=== PATIENT | female | born 1985 | race Asian ===

== ENCOUNTER 2016-08-02 05:34 | Emergency (ER) | payer OTHER ==
[~2016-08-02] VITALS: Ht 165.1 cm; Wt 59.0 kg
[2016-08-02] MEDS ORDERED: ONDANSETRON HCL/PF 4 MG/2 ML VIAL ONE (06:16)
[2016-08-02] MEDS ORDERED: MORPHINE SULFATE INJ 2 MG/ML DISP.SYRIN ONE (06:16)
[2016-08-02] MEDS ORDERED: IV SET PRIMARY 1 EA INFUS.SET MC ONE (06:17)
[2016-08-02] MEDS ORDERED: IV NS 0.9% 1,000 ML ONE (06:17)
[2016-08-02 06:25] LABS: BASOPHILS % (AUTO) 0.4 % (0.0-2.0); DIFF TOTAL % 100 %; EOSINOPHILS # (AUTO) 0.2 /CMM (0.0-0.7); HEMATOCRIT 40 % (33-45); HEMOGLOBIN 13.3 g/dL (11.5-14.8); LYMPHOCYTES # (AUTO) 1.7 /CMM (0.8-4.8); LYMPHOCYTES % (AUTO) 31.3 % (20.0-44.0); MEAN CORPUSCULAR HEMOGLOBIN 30 PG (26.0-33.0); MEAN CORPUSCULAR HGB CONC 34 g/dl (31.0-36.0); MEAN CORPUSCULAR VOLUME 90 fL (82-100); MONOCYTES # (AUTO) 0.4 /CMM (0.1-1.30); MONOCYTES % (AUTO) 7.6 % (2.0-12.0); NEUTROPHILS # (AUTO) 3.1 /CMM (1.8-8.9); NEUTROPHILS % (AUTO) 57.7 % (43.0-81.0); PLATELET COUNT (AUTO) 285 /CMM (150-450); RED BLOOD CELL COUNT(AUTO) 4.42 MIL/uL (4.0-5.2); WHITE BLOOD COUNT (AUTO) 5.4 K/uL (4.3-11.0)
[2016-08-02] MEDS ORDERED: ONDANSETRON HCL/PF 4 MG/2 ML VIAL IVP ONE (06:30)
[2016-08-02] MEDS ORDERED: MORPHINE SULFATE INJ 2 MG/ML DISP.SYRIN IV ONE (06:30)
[2016-08-02] MEDS ORDERED: IV NS 0.9% 1,000 ML BAG IV ONE (06:30)
[2016-08-02 06:31] LABS: KETONES,URINE TRACE (NEGATIVE); LEUKOCYTE ESTERASE ,URINE NEGATIVE (NEGATIVE)
[2016-08-02 06:32] LABS: ADD UA MICROSCOPIC YES
[2016-08-02 06:33] LABS: CALCIUM, SERUM 9.4 mg/dL (8.5-10.1); CREATININE 0.8 mg/dL (0.6-1.3); POTASSIUM 3.8 mmol/L (3.5-5.1)
[2016-08-02 06:44] LABS: ADD URINE CULTURE NO; RBC,URINE TOO NUMEROUS TO COUN /HPF (0-2); WBC,URINE 0-2 /HPF (0-3)
[2016-08-02 08:46] VITALS: BP 100/68
== END 2016-08-02 08:46 | disposition home or self-care (01) ==
LOC: ER 05:39
DX: O03.9 Complete or unspecified spontaneous abortion without complication (principal); Z3A.01 Less than 8 weeks gestation of pregnancy
CPT/HCPCS: 36415; 76805; 80048; 81001; 84702; 85025; 96361; 96374; 96375; 99285; A4606; J2270; J2405; J7030; Z7610; 81000-TC